=== PATIENT | female | born 1995 | race Hispanic/Latino ===

== ENCOUNTER 2022-10-29 13:57 | Emergency (ER) | payer BC ==
[~2022-10-29] VITALS: Ht 165.1 cm; Wt 83.9 kg
[2022-10-29] MEDS ORDERED: SOLU-MEDROL 125MG VIAL IM ONE (15:30)
[2022-10-29] MEDS ORDERED: KETOROLAC 15MG/ML VIAL (15MG/ML) IM ONE (15:30)
[2022-10-29] MEDS ORDERED: IBUP-1554 PO (15:47)
[2022-10-29] MEDS ORDERED: METH-811 PO (15:47)
[2022-10-29] MEDS ORDERED: LIDOP TP (15:47)
[2022-10-29 15:55] VITALS: BP 124/68
== END 2022-10-29 16:08 | disposition home or self-care (01) ==
LOC: EDH 13:57
DX: M54.16 Radiculopathy, lumbar region (principal); M54.40 Lumbago with sciatica, unspecified side; Z79.1 Long term (current) use of non-steroidal anti-inflammatories (NSAID); Z79.52 Long term (current) use of systemic steroids
CPT/HCPCS: 99284; 72131; 96372 ×2; J2930; J1885

== ENCOUNTER 2022-10-30 11:59 | Observation (INO) | payer BC ==
[~2022-10-30] VITALS: Ht 165.1 cm; Wt 83.9 kg
[~2022-10-30 11:59] MED LIST: IBUP-1554 PO; LIDOP TP; METH-811 PO
[2022-10-30] MEDS ORDERED: DIPHENHYDRAMINE HCL 25 MG CAPSULE PO PRN (13:30)
[2022-10-30] MEDS ORDERED: ACETAMINOPHEN 325 MG TAB PO PRN (13:30)
[2022-10-30] MEDS ORDERED: ONDANSETRON 4MG INJ IVP PRN (13:30)
[2022-10-30] MEDS ORDERED: ZOLPIDEM TARTRATE 5 MG TAB PO PRN (13:30)
[2022-10-30] MEDS ORDERED: LACTULOSE 20 GM/30 ML UDCUP PO PRN (13:30)
[2022-10-30 13:56] LABS: BASOPHILS % (AUTO) 0.2 % (0.0-5.0); EOSINOPHILS % (AUTO) 0.9 % (0.0-8.0); HEMATOCRIT 41.8 % (36-48); LYMPHOCYTES % (AUTO) 19.4 % (21.0-51.0); MEAN CORPUSCULAR HEMOGLOBIN 27.5 pg (27.0-33.0); MEAN CORPUSCULAR HGB CONC 32.5 g/dL (32.0-36.0); MEAN CORPUSCULAR VOLUME 84.6 fL (79-99); MONOCYTES % (AUTO) 6.9 % (3.0-13.0); NEUTROPHILS % (AUTO) 72.1 % (40.0-77.0); PLATELET COUNT (AUTO) 303 K/uL (130-400); RED BLOOD CELL COUNT(AUTO) 4.94 MIL/uL (4.00-5.50); RED CELL DISTRIBUTION WIDTH 14.7 % (11.0-15.5); WHITE BLOOD COUNT (AUTO) 18.9 K/uL (4.8-10.8)
[2022-10-30 14:05] LABS: CREATININE 0.9 mg/dL (0.5-1.5); POTASSIUM 3.7 mmol/L (3.5-5.1)
[2022-10-30 14:10] LABS: ALBUMIN 3.5 g/dL (3.5-5.0); BILIRUBIN,DIRECT 0.1 mg/dL (0.0-0.3); TOTAL PROTEIN, SERUM 7.2 g/dL (6.0-8.3)
[2022-10-30] MEDS ORDERED: SOLU-MEDROL 40MG VIAL ONE (14:43)
[2022-10-30] MEDS: SOLU-MEDROL 125MG VIAL IVP SCH ×2 (14:49→21:09)
[2022-10-30 15:15] LABS: APPEARANCE,URINE CLEAR (CLEAR); BILIRUBIN,URINE NEGATIVE (NEGATIVE); COLOR,URINE YELLOW (YELLOW); GLUCOSE, URINE (UA) NEGATIVE (NEGATIVE); KETONES,URINE 5 mg/dL (NEGATIVE); LEUKOCYTE ESTERASE ,URINE NEGATIVE Leu/uL (NEGATIVE); NITRATE,URINE 2+ (NEGATIVE); OCCULT BLOOD,URINE NEGATIVE (NEGATIVE); PROTEIN,URINE 30 mg/dL (NEGATIVE); UROBILINOGEN,URINE 0.2 mg/dL (0.2-1.0)
[2022-10-30 15:24] LABS: BACTERIA,URINE MANY /HPF (None Seen); MUCUS,URINE FEW LPF (None Seen); SQUAMOUS EPITHELIAL CELL,UR RARE /HPF (0-2)
[2022-10-30] MEDS: MORPHINE 4 MG SYG IVP PRN (15:41)
[2022-10-30 17:00] VITALS: BP 123/69
[2022-10-30 20:20] VITALS: BP 119/61
[2022-10-30] MEDS: FAMOTIDINE 20MG TAB PO SCH (21:07)
[2022-10-30 23:33] VITALS: BP 112/63
[2022-10-31 04:10] VITALS: BP 111/50
[2022-10-31] MEDS: SOLU-MEDROL 125MG VIAL IVP SCH ×3 (05:18→21:41)
[2022-10-31 07:58] VITALS: BP 117/72
[2022-10-31] MEDS: FAMOTIDINE 20MG TAB PO SCH ×2 (08:33→21:41)
[2022-10-31] MEDS: MORPHINE 4 MG SYG IVP PRN ×2 (08:34→18:40)
[2022-10-31 12:00] VITALS: BP 124/70
[2022-10-31] MEDS: HYDROCODONE/ACETAMINOPHEN 10/325 MG TAB PO PRN (12:27)
[2022-10-31 15:44] VITALS: BP 115/62
[2022-10-31 19:19] VITALS: BP 106/62
[2022-10-31 22:32] VITALS: BP 100/53
[2022-11-01 02:54] VITALS: BP 92/55
[2022-11-01] MEDS: SOLU-MEDROL 125MG VIAL IVP SCH ×2 (05:54→13:40)
[2022-11-01] MEDS: HYDROCODONE/ACETAMINOPHEN 10/325 MG TAB PO PRN ×2 (06:00→09:24)
[2022-11-01 07:50] VITALS: BP 109/57
[2022-11-01] MEDS: FAMOTIDINE 20MG TAB PO SCH (09:22)
[2022-11-01 11:45] VITALS: BP 97/57
[2022-11-01 15:53] VITALS: BP 121/69
== END 2022-11-01 16:10 | disposition home or self-care (01) ==
LOC: EDH 11:59 → DIRECT 12:00 → UNDOADMOB 12:13 → 3BH 17:48 → DIRECT 17:48 → WSH 10-31 15:40
PROVIDERS: ADMIT Internal Medicine; ATTEND Internal Medicine
DX: M54.50 Low back pain, unspecified (principal); G89.29 Other chronic pain; G57.02 Lesion of sciatic nerve, left lower limb; Z79.899 Other long term (current) drug therapy; Z98.890 Other specified postprocedural states
CPT/HCPCS: 96374; 96376 ×3; 96375; 80076; 80048; 84703; 85025; 87077; 87088; 87186; 81001; 81025; 36415; 72148; 97161; 97039; 97116 ×2; G0378 ×48; J2930 ×7; J2405; J2920; J2270 ×3